=== PATIENT | female | born 1960 | race Caucasian/White ===

== ENCOUNTER → 2017-02-18 | Outpatient (CLI) | payer OTHER ==
[~2017-02-18] MED LIST: ADULT LOW DOSE81 MG PO; AVELOX 400 MG400 MG PO; ECONAZOLE 1% CR30 G1 TRANSDERM; HYDROCHLOROTHIA25 M2 PO; LIPITOR10 MG PO; PAXIL20 MG PO; PERCOCET 5-3251 EACH PO; POTASSIUM20 PO; PRINZIDE 20-121 EACH PO; PROAIR HFA8.5 GM INH; PROVENTIL; [UNRECOGNIZED DRUG - REMARK] PO
== END ==
LOC: PET 13:46
DX: M47.896 Other spondylosis, lumbar region (principal); M47.894 Other spondylosis, thoracic region; R91.1 Solitary pulmonary nodule

== ENCOUNTER → 2017-03-03 | Outpatient (CLI) | payer OTHER ==
[2017-03-03] VITALS (10 sets, daily range): BP systolic 117–161; BP diastolic 66–98
[~2017-03-03] VITALS: Ht 175.3 cm; Wt 58.1 kg
[~2017-03-03] MED LIST changes: +CENTRUM SILVER1 EAC4 PO; +LOVASTATIN 20 M20 MG PO; +NAPROSYN500 MG PO; +NITROGLYCERIN0.4 MG SUBLING
--- NOTE | ~2017-03-03 | S ---
[facility] [place] [address] SURGICAL PATH RPT PROCEDURE Name: PROSPER ESTEBAN ABDIAS Room #: REG LIDIA HoytStefanie.#: [id number] Admission: 03/03/17 Date of : 56 Discharge: Report #: [id number] Path Case #: [id number] PATHOLOGY REPORT COLLECTION DATE: 03/03/2017 RECEIVED DATE: 03/03/2017 SUBMITTING PHYS: Dr. Abhinav Zelaya OTHER PHYS: Dr. Marium Christianson SPECIMEN(S) RECEIVED: A.Rt lung mass * * * * * * * * * * * * FINAL DIAGNOSIS: Lung, right lung, needle core biopsy: - INVASIVE MODERATELY-DIFFERENTIATED ADENOCARCINOMA. COMMENT: The immunohistochemical stains are performed to further characterize the neoplasm. (Block A1) TTF-1 Reactivity present Napsin Reactivity present P40 Focally reactive P63 Weakly reactive suggestive of a mixed squamous component. Co-Review: Dr. Amalia De Los Santos. Findings are telephoned to Ms. Galo, Dr. Abhinav Zelaya's nurse at 12:03 PM on 03/05/2017. (IUV:mml; 03/04/2017) PATHOLOGIST: Etelvina Yip M.D. REPORT ELECTRONICALLY SIGNED BY: Etelvina Yip M.D. DATE/TIME: 03/05/2017 12:04 * * * * * * * * * * * * GROSS PATHOLOGY: Received in formalin labeled "Prosper Esteban, right lung biopsy," are 2 distinct needle cores of flores soft tissue ranging from 0.7 to 0.8 cm in length, which are submitted entirely in cassette A1. (SNA; 03/03/2017) CLINICAL HISTORY: Right lung mass seen on PET scan INITIAL CPT CODE(S): [facility] [address] [place] [address] SURGICAL PATH RPT PROCEDURE Name: ASHISH ESTEBANFany CALERO Room #: REG LIDIA Hoyt.William.#: [id number] Admission: 03/03/17 Date of : 56 Discharge: Report #: [id number] Path Case #: [id number]; [id number], [id number] Professional services performed by [facility] at [address] [place], [place] [address] Technical services performed by [facility] at [address] [place] [address]. Brando Renae [facility] [address] [place] [address] PHONE: [phone] DIRECTOR: Darryn Urbano M.D. * * * END OF REPORT * * *
[2017-03-03 08:18] LABS: CREATININE 0.7 mg/dL (0.6-1.0); POTASSIUM 3.6 mmol/L (3.5-5.1)
[2017-03-03 08:24] LABS: ALBUMIN 3.6 g/dL (3.4-5.0); TOTAL BILIRUBIN 0.6 mg/dL (<0.1-1.0); TOTAL PROTEIN 7.5 g/dL (6.4-8.2)
[2017-03-03 08:25] LABS: APTT 26.6 Seconds (24.5-32.8); PROTIME 10.6 Seconds (9.3-11.4)
[2017-03-03 08:29] LABS: HEMOGLOBIN 17.1 gm/dL (12.0-15.0); RBC 5.35 mil/uL (4.20-5.00); WBC 6.2 thou/uL (4.0-11.0)
[2017-03-03 08:30] LABS: HEMATOCRIT 50.2 % (37.0-47.0); MCH 31.9 pg (26.0-34.0); MCV 93.9 fL (80.0-100.0); RDW 13.5 % (10.5-14.5)
== END | disposition home or self-care (01) ==
LOC: CAT 07:47
PROVIDERS: Internal Medicine Pulmonary Disease
DX: C34.91 Malignant neoplasm of unspecified part of right bronchus or lung (principal); J43.9 Emphysema, unspecified

== ENCOUNTER → 2017-08-13 | Outpatient (CLI) | payer OTHER | LOC: RAD 13:26 | DX: J20.9 Acute bronchitis, unspecified (principal); J43.8 Other emphysema ==

== ENCOUNTER 2018-09-06 15:12 | Inpatient (IN) | payer OTHER ==
[~2018-09-06] VITALS: Ht 175.3 cm; Wt 49.0 kg
[2018-09-06 15:13] VITALS: BP 164/87
[2018-09-06 15:51] LABS: BE(vivo) -0.3 mmol/L (-2 to +3); HCO3 26.1 mmol/L (22.0-26.0); PCO2 49.1 mmHg (35.0-45.0); PO2 71.7 mmHg (80.0-100.0); pH 7.344 (7.360-7.450); sO2 93.5 % (92.0-98.0)
[2018-09-06 16:16] LABS: ABSOLUTE NEUTROPHILS 13.1 thou/uL (1.4-8.2); BASOPHILS 0.2 % (0.0-2.0); EOSINOPHILS 1.1 % (0.0-3.0); HEMATOCRIT 47.5 % (37.0-47.0); HEMOGLOBIN 15.9 gm/dL (12.0-15.0); LYMPHOCYTES 2.9 % (24.0-44.0); MCH 32.4 pg (26.0-34.0); MCHC 33.5 g/dL (28.0-37.0); MCV 96.6 fL (80.0-100.0); MONOCYTES 6.4 % (1.0-8.0); PLATELET COUNT 121 thou/uL (150-400); POLYS 89.4 % (36.0-66.0); RBC 4.92 mil/uL (4.20-5.00); RDW 13.9 % (10.5-14.5); WBC 14.6 thou/uL (4.0-11.0)
[2018-09-06 16:24] LABS: ANION GAP 6 mmol/L (7-16); BUN 12 mg/dL (7-18); CALCIUM 8.9 mg/dL (8.5-10.1); CHLORIDE 102 mmol/L (98-107); CO2 32 mmol/L (21-32); CREATININE 0.7 mg/dL (0.6-1.0); GLUCOSE 160 mg/dL (74-106); POTASSIUM 3.2 mmol/L (3.5-5.1); SODIUM 140 mmol/L (136-145)
--- NOTE | 2018-09-06 16:30 | NUR ---
ASSUMED PT CARE FROM SAGAR GALLEGOS
[2018-09-06 16:32] LABS: ALBUMIN 3.4 g/dL (3.4-5.0); SGOT 30 U/L (15-37); SGPT 33 U/L (30-65); TOTAL BILIRUBIN 0.9 mg/dL (<0.1-1.0); TOTAL PROTEIN 6.8 g/dL (6.4-8.2); TROPONIN-I <0.06 ng/mL (<0.06)
[2018-09-06 16:49] LABS: URINE CLARITY CLEAR; URINE COLOR YELLOW; URINE GLUCOSE-RANDOM* NEGATIVE (Negative); URINE KETONES 1+ (Negative); URINE PROTEIN (DIPSTICK) TRACE (Negative); URINE SPECIFIC GRAVITY 1.025 (1.005-1.035)
[2018-09-06 16:50] LABS: URINE BILIRUBIN NEGATIVE (Negative); URINE BLOOD TRACE (Negative); URINE LEUKOCYTES-REFLEX NEGATIVE (Negative); URINE NITRITE-REFLEX NEGATIVE (Negative); URINE UROBILINOGEN 0.2 E.U./dl (0.2-1.0)
--- NOTE | 2018-09-06 16:53 | EKG ---
[place] [address] [place] [address] ELECTROCARDIOGRAM REPORT Name: PROSPER ESTEBAN Room #: REG SANGITA Pham#: [id number] Admission: 09/06/18 Attend Phys: Discharge: Date of : 56 Report #: [id number] THIS REPORT FOR: //name// [facility] ED Test Date: 2018-09-06 Test Time: 15:36:02 Pat Name: PROSPER ESTEBAN Department: Room: Gender: F Field Services Analyst: damián : 1960 Requested By: Halie Vidal Order Number: [id number] MD: Kaden Moran Measurements Intervals [place] Rate: 86 P: 90 NM: 140 QRS: 96 QRSD: 108 T: 47 QT: 401 QTc: 480 Interpretive Statements Sinus rhythm Right atrial enlargement Borderline right axis deviation Minimal ST depression, inferior leads Compared to ECG 11/03/2012 06:51:32 No significant change was found Electronically Signed On 09-06-2018 16:53:37 MACHINE WOOD SANDER by Kaden Moran [email or web address] <ELECTRONICALLY SIGNED> By: Kaden Moran MD, [facility] 09/06/18 1653 [id number] Kaden Moran MD, FACC /EPI
[2018-09-06] MEDS ORDERED: TESSALON PERLE100 MG PO (18:27)
[2018-09-06] MEDS ORDERED: POTASSIUM20 PO (18:28)
[2018-09-06] MEDS ORDERED: STIOLTO RESPIMAT4 GM IM (18:28)
[2018-09-06] MEDS ORDERED: ZOLOFT50 MG PO (18:28)
[2018-09-06 18:29] VITALS: BP 126/74
[2018-09-06] MEDS ORDERED: TRAZODONE HCL100 MG PO (18:29)
--- NOTE | 2018-09-06 19:41 | NUR ---
ATTEMPT TO CALL REPORT, PAIGE GALLEGOS TO CALL ED BACK WHEN AVAILABLE
[2018-09-06 22:25] LABS: ALBUMIN 3.1 g/dL (3.4-5.0); TOTAL PROTEIN 6.4 g/dL (6.4-8.2)
[2018-09-06 23:47] VITALS: BP 108/72
[2018-09-07 00:38] LABS: TSH 1.135 uIU/mL (0.358-3.740)
--- NOTE | 2018-09-07 03:35 | NUR ---
ARRIVAL VIA ER FROM ONOCOLOGIST OFFICE AFTER HAVING LUNG BIOSPSY, WHICH CAUSED A PNEUMO. PT HAD A FLUTTER VALVE INSERTED AND DRESSED WITH ABD'S AND TAPE. PT STATES PAIN ASSOCIATED WITH THE INCISION SITE AND VALVE AREA. GAVE ORAL TYLENOL FOR PAIN. GAVE PT TRAZADONE WHICH SHE STATES SHE TAKES IN THE EVENING AND NOT IN THE MORNING. PT STATES, "I TAKE IT TO HELP ME SLEEP". IN THE PROCESS OF GETTING IT MOVED FROM 0900 TO 2100. PT STATES NO OTHER COMPLAINTS. PT IS REFUSING RT TX'S. HOURLY ROUNDING.
[2018-09-07 03:37] VITALS: BP 137/83
[2018-09-07 05:36] LABS: HEMATOCRIT 50.4 % (37.0-47.0); HEMOGLOBIN 16.4 gm/dL (12.0-15.0); MCH 31.9 pg (26.0-34.0); MCHC 32.5 g/dL (28.0-37.0); MCV 98.1 fL (80.0-100.0); RBC 5.14 mil/uL (4.20-5.00); WBC 12.9 thou/uL (4.0-11.0)
[2018-09-07 05:41] LABS: CALCIUM 9.1 mg/dL (8.5-10.1); CREATININE 0.6 mg/dL (0.6-1.0); MAGNESIUM 1.8 mg/dL (1.8-2.4); POTASSIUM 3.5 mmol/L (3.5-5.1)
[2018-09-07 08:18] VITALS: BP 129/79
[2018-09-07 12:00] VITALS: BP 125/79
--- NOTE | 2018-09-07 16:10 | NUR ---
ASSESSMENT: CM REVIEWED CHART AND MET WITH PATIENT AT THE BEDSIDE. PT IS ALERT AND ORIENTED X4. PT REPORTS SHE LIVES IN A HOUSE WITH HER SIGNIFICANT OTHER. PT REPORTS THAT SHE HAS ABOUT 7 STEPS WITH HANDRAILS TO ENTER THE HOME. PT REPORTS SHE AMBULATES INDEPENDENTLY AND IS INDEPENDENT WITH ADLS. PT REPORTS HAVING A GRAB BAR AND SHOWER CHAIR. PT HAS HX OF SMALL CELL CARCINOMA AND HAS BEEN FO[facility]ING [facility] AND SEES DR. JACKSON. PT REPORTS SHE HAS NOT HAD HH IN THE PAST NOR BEEN TO A SNF. PT IS CURRENTLY ON OXYGEN BUT DOES NOT HAVE IT SUPPLIED AT HOME. PT WAS ADMITTED FOR PNEUMOTHORAX AND CURRENTLY HAS CHEST TUBE. PT REPORTS SHE HAD BEEN DOING PRETTY WELL AT HOME AND SHE ANTICIPATES SHE HOPEFULLY WILL HAVE NO NEEDS AT DISCHARGE. CM WILL CONTINUE TO FOLLOW TO ASSIST NEEDED.
[2018-09-07 17:13] VITALS: BP 146/86
--- NOTE | 2018-09-07 18:19 | NUR ---
PT WITH RT CHEST TUBE ATTACHED TO -20CM PLEURAVAC..PAIN FAIRLY WELL CONTROLLED WITH NORCOS...
[2018-09-07 19:36] VITALS: BP 118/73
[2018-09-08 03:39] VITALS: BP 153/94
[2018-09-08 05:12] LABS: HEMATOCRIT 45.8 % (37.0-47.0); HEMOGLOBIN 15.7 gm/dL (12.0-15.0); MCH 33.3 pg (26.0-34.0); MCHC 34.4 g/dL (28.0-37.0); MCV 96.9 fL (80.0-100.0); RBC 4.72 mil/uL (4.20-5.00); RDW 13.8 % (10.5-14.5); WBC 10.8 thou/uL (4.0-11.0)
[2018-09-08 05:33] LABS: CALCIUM 9.4 mg/dL (8.5-10.1); CREATININE 0.6 mg/dL (0.6-1.0); MAGNESIUM 1.9 mg/dL (1.8-2.4); POTASSIUM 3.3 mmol/L (3.5-5.1)
[2018-09-08 07:20] VITALS: BP 136/83
--- NOTE | 2018-09-08 07:47 | NUR ---
PATIENT IS PROGRESSING IN HER CARE PLAN. VITAL SIGNS STABLE WITH PATIENT HAVING NO COMPLAINTS OF NAUSEA. PATIENT DID COMPLAIN OF CHEST PAIN WHEN COUGHING ON SIDE WITH CHEST TUBE. PAIN SUCCESSFULLY TREATED WITH MEDICATIONS AND COUGH MEDS. PATIENT WAS UP TO BEDSIDE COMMODE FREQUENTLY WITH ASSISTANCE INCIDENT FREE. CONTINUE PLAN OF CARE.
[2018-09-08 11:35] VITALS: BP 130/80
--- NOTE | 2018-09-08 14:38 | NUR ---
ON-GOING ASSESSMENT: PT IS SLOWLY PROGRESSING TOWARDS DISCHARGE GOALS AND CHEST TUBE STILL REMAINS IN PLACE. CM WILL CONTINUE TO FOLLOW TO ASSIST NEEDED.
[2018-09-08 16:05] VITALS: BP 175/94
--- NOTE | 2018-09-08 17:47 | NUR ---
ASSUMED CARE AT SHIFT CHANGE. PT A/O X 4. CALM/COOPERATIVE ALL DAY. C/O MINIMAL PAIN THROUGHOUT THE DAY, GIVEN PRN PAIN MEDICATION FOR SYMPTOMS. PT UPDATED ON POC. LABS SHOW HYPOKALEMIA, K REPLACED AND ORDER FOR DAILY K RESTARTED FROM HOME MEDS PER DR CARBAJAL. PT REPEAT CXR SHOW STABLE PNEUMO WITH NO CHANGE FROM YESTERDAY. CHEST TUBE REMAINS IN PLACE WITH NO DRAINAGE TODAY. ASSESSMENTS PER CHART. PT REMAINS STABLE. LABS NOTED. WILL CONT TO MONITOR AND FOLLOW POC.
[2018-09-08 19:04] VITALS: BP 141/91
[2018-09-09 03:27] VITALS: BP 143/85
--- NOTE | 2018-09-09 04:07 | NUR ---
PATIENT IS PROGRESSING IN HER CARE PLAN. VITAL SIGNS STABLE WITH PATIENT HAVING NO COMPLAINTS OF NAUSEA. PATIENT DID COMPLAIN OF PAIN IN RIGHT CHEST FROM COUGHING AND WAS MANAGED BETTER THAN YESTERDAY. COUGH MEDICATIONS PRN FOR CHRONIC COUGH. PATIENT IS FULLY ORIENTED AND ABLE TO CALL APPROPRIATELY FOR REQUESTS. SHE REMAINS ON OXYGEN AND IS HAVING NO TROUBLES BREATHING EVIDENCED BY SPOT OXYGENATION CHECKS. CHEST TUBE REMAINS IN PLACE BUT IS NOT WORKING EFFECTIVELY. DOCTOR AWARE WITH POSSIBLE REPLACEMENT TREATMENT TODAY. PATIENT HAS BEEN UP MULTIPLE TIMES TO BEDSIDE COMMODE WITH ASSISTANCE INCIDENT FREE. CONTINUE PLAN OF CARE.
[2018-09-09 06:38] LABS: HEMATOCRIT 46.4 % (37.0-47.0); MCH 31.6 pg (26.0-34.0); MCHC 32.3 g/dL (28.0-37.0); RBC 4.73 mil/uL (4.20-5.00); RDW 13.9 % (10.5-14.5); WBC 7.6 thou/uL (4.0-11.0)
[2018-09-09 06:48] LABS: CALCIUM 9.1 mg/dL (8.5-10.1); CREATININE 0.5 mg/dL (0.6-1.0); MAGNESIUM 1.8 mg/dL (1.8-2.4); POTASSIUM 3.8 mmol/L (3.5-5.1)
[2018-09-09 07:06] VITALS: BP 121/84
[2018-09-09 11:45] VITALS: BP 132/81
--- NOTE | 2018-09-09 14:25 | NUR ---
PT HAS COARSE LUNGS..SATS 95% ON 7L...RT SINGLE LUMEN CT W/ WATERSEAL IN PLACE..MEDS PRN FOR COUGH AND RT TX...WILL MONITOR...
[2018-09-09 16:25] VITALS: BP 134/86
[2018-09-09 19:08] VITALS: BP 138/85
[2018-09-10 00:21] VITALS: BP 139/89
--- NOTE | 2018-09-10 03:13 | NUR ---
PATIENT IS ALERT AND ORIENTED. PATIENT IS SBA TO CAMMODE. PATIENT IS ON 7L NC. PATIENT HAS A CHEST TUBE IN PLACE JUST WATER SEALED. CHEST TUBE IS TAPED TO THE FLOOR. PATIENTS PAIN IS CONTROLLED WITH MEDICATION. PATIENT IS CURRENTELY ON CHEMO AND RADIATION. PATIENT IS NSR ON TELE. PATIENTS LBM WAS THE 28TH PATIENT STATED IT WAS NORMAL TO GO A COUPLE DAYS BETWEEN BMS. PATIENT IS RESTING COMFORTABLEY IN BED. WCM. PATIENT IS PROGRESSING TO GOALS.
[2018-09-10 04:45] VITALS: BP 133/72
[2018-09-10 05:18] LABS: CALCIUM 9.2 mg/dL (8.5-10.1); CREATININE 0.6 mg/dL (0.6-1.0); HEMOGLOBIN 15.3 gm/dL (12.0-15.0); MAGNESIUM 1.9 mg/dL (1.8-2.4); MCH 31.8 pg (26.0-34.0); MCHC 32.6 g/dL (28.0-37.0); MCV 97.7 fL (80.0-100.0); POTASSIUM 3.8 mmol/L (3.5-5.1); RBC 4.81 mil/uL (4.20-5.00); RDW 13.7 % (10.5-14.5); WBC 7.3 thou/uL (4.0-11.0)
[2018-09-10 07:23] VITALS: BP 131/81
[2018-09-10 11:00] VITALS: BP 148/95
--- NOTE | 2018-09-10 13:54 | NUR ---
ON-GOING ASSESSMENT: CM REVIEWED CHART AND MET WITH PATIENT AT THE BEDSIDE. PT STILL HAS CHEST TUBE IN BUT IS WATER SEALED. EVER IS STILL CURRENTLY ON 4L OXYGEN AND DOES NOT HAVE OXYGEN ARRANGED AT HOME. CM SPOKE WITH ATTENDING AND ONCE CHEST TUBE IS ABLE TO BE PULLED PT WILL NEED TO HAVE A SAT EXERCISE TEST ORDERED TO SEE IF SHE WILL NEED HOME OXYGEN. PT IS HOPEFUL SHE WILL NOT NEED OXYGEN AT THE TIME OF DISCHARGE. IF CHEST TUBE IS PULLED AND PATIENT IS MEDICALLY STABLE TO LEAVE OVER THE WEEKEND AND IF SHE IS REQUIRING HOME OXYGEN THEN CONTACT [facility] ([employer] OFFICE AT [phone] AND LET THEM KNOW SHE IS GOING HOME AND NEEDS AT TANK. ONCE THE SAT EXERCISE TEST IS COMPLETED A SCRIPT FROM THE ATTENDING STATING THE LITER FLOW FROM THE TESTING MUST BE ON THE SCRIPT WELL A DIAGNOSIS AND WRITE FOR A [employer] AND [employer]ANKS ON THE SCRIPT AND FAX TO [facility] AT THE NUMBER THEY PROVIDE ([phone]). PATIENT REPORTING SHE DOES NOT WANT HH AND STATES HER SIGNIFICANT OTHER IS THERE TO HELP TAKE CARE OF HER.
[2018-09-10 15:53] VITALS: BP 146/90
[2018-09-10 20:25] VITALS: BP 142/88
--- NOTE | 2018-09-11 03:50 | NUR ---
PATIENT IS ALERT AND OREITNED. PATIENT IS SBA TO BSC DUE TO TUBES. PATIENTS CHEST TUBE DRESSING IS CLEAN AND INTACT. CHEST TUBE IS WATER SEALED PENDING CXR AND POSSIBLE REMOVAL OF TUBE TODAY. PATIENT DENIES NAUSEA. STILL HAS POOR APPITITE. PATIENTS PAIN IS CONTROLLED WITH PAIN MEDICATION. PATIENT IS ON 4L NC. ROOM AIR IS BASE LINE. PATIENT IS RESTING COMFORTABLEY IN BED. WCM. PATIENT IS PROGRESSING TO GOALS.
[2018-09-11 05:30] VITALS: BP 124/78
[2018-09-11 05:37] LABS: CALCIUM 9.1 mg/dL (8.5-10.1); CREATININE 0.7 mg/dL (0.6-1.0)
[2018-09-11 08:07] VITALS: BP 140/90
[2018-09-11 11:42] VITALS: BP 139/87
[2018-09-11 15:03] VITALS: BP 139/92
--- NOTE | 2018-09-11 18:50 | NUR ---
Assumed care of Pt at 0700. Pt AOx4 in no acute distress. Chest tube discontinued by physician - dressing c/d/i. ambulating indipdedently - still soa w/ activity. refused transfer to senior suites. on 4L NC. possible d/c tomorrow. good progress toward poc goals.
[2018-09-11 20:45] VITALS: BP 120/81
[2018-09-12 04:15] VITALS: BP 137/93
[2018-09-12 07:44] VITALS: BP 126/83
--- NOTE | 2018-09-12 07:58 | NUR ---
PATIENT IS ALERT AND ORIETNED. PATIENT IS SBA. PATIENTS PAIN IS CONTROLLED WITH PAIN MED. PATIENT IS PENDING DISCHARGE TODAY. PATIENT IS ON 4L NC. PATIENTS LUNGS ARE COURSE. PATIENT IS NSR ON TELE. PATIENT IS RESTING COFMORTABLEY IN BED. WCM. PATIENT IS PROGRESSING TO GOALS
[2018-09-12 11:30] VITALS: BP 113/78
[2018-09-12 15:54] VITALS: BP 117/72
[2018-09-12] MEDS ORDERED: LEVAQUIN 500 M500 M1 PO (17:15)
[2018-09-12] MEDS ORDERED: DELSYM COU30 MG/5 M1 PO (17:15)
[2018-09-12] MEDS ORDERED: ACETAMINOPHEN325 M1 PO (17:15)
[2018-09-12] MEDS ORDERED: MIRALAX17 GM PO (17:15)
[2018-09-12] MEDS ORDERED: NICOTINE TRANSD21 M1 TRANSDERM (17:15)
[2018-09-12] MEDS ORDERED: MUCINEX600 MG PO (17:15)
[2018-09-12] MEDS ORDERED: PREDNISONE 20 M20 M1 PO (17:15)
[2018-09-12] MEDS ORDERED: HYDROCODON-ACE1 EAC7 PO (17:15)
[2018-09-12] MEDS ORDERED: PULMICORT0.5 MG/21 INH (17:15)
--- NOTE | 2018-09-12 17:20 | NUR ---
ASSUMED PATIENT CARE AT 0700 A/O X4. TOLERATED ON 3L/NC O2. RT STURATION RESRT AND EXERISE SHOW PATIENT NEED 3L O2 TO GO HOME. NOTIFIED DR DUMAS ABOUT DISCHARGE. WAITTING FOR DC ORDER. PATIENT PROGRESSING TOWARDS POC GOALS.
[2018-09-12 19:40] VITALS: BP 126/79
[2018-09-13] VITALS (8 sets, daily range): BP systolic 119–131; BP diastolic 75–87
--- NOTE | 2018-09-13 04:41 | NUR ---
PAITNET IS ALERT AND ORIENTED. PAIN IS MANAGED WITH MEDIATIONS. PATIENT IS PENDING DISCHARGE TODAY. CM NOTES HAS NUMBER TO CALL FOR HOME OXYGEN UPON DC. PATIENT IS SBA TO BSC. PATIENT IS ON 3L NC. PATIENT IS RESTING COMFORTABLEY IN BED. WCM. PATIENT IS PROGRESSING TO GOALS.
--- NOTE | 2018-09-13 13:59 | NUR ---
ON-GOING ASSESSMENT: CM REVIEWED CHART. PT HAS ORDERS TO GO HOME ONCE OXYGEN ARRANGED, CM HAD NOT WITH OXYGEN COMPANY # IN FOR THE WEEKEND. CM MET WITH PATIENT AT THE BEDSIDE. CM FAXED SAT EXERCISE AND RX FOR OXYGEN TO [facility] AND THEY DELIVERED THE PORTABLE TANK. CM DISCUSSED HH ORDERS AND PT STATING SHE DOES NOT WANT HH OR FEEL SHE NEEDS IT. PT STATING HER SIGNIFICANT OTHER IS WITH HER 02/03. CM NOTIFIED ATTENDING. PT REPORTS NO FURTHER NEESD FROM CM. PT STATES SHE HAS BEEN WALKING INDEPENDENTLY AND FEELS FINE WALKING. CASE CLOSED.
--- NOTE | 2018-09-13 14:53 | NUR ---
PT DISCHARGED HOME WITH SO..REFUSED HOME HEALTH..RX GIVEN AND FOLLOW UP APPOINTMENTS INSTRUCTED..O2 DELIVERED..
--- NOTE | 2018-09-20 12:59 | HC ---
[facility] [place] [address] CONSULTATION Name: PROSPER ESTEBAN Room #: 357-[facility] IN M.R.#: [id number] Admission: 09/06/18 Attend Phys: Rufino Malave MD Discharge: 09/13/18 Date of : 56 Report #: [id number] THIS REPORT FOR: //name// CC: Marium Zelaya MD HISTORY OF PRESENT ILLNESS: The patient is well known to me from treatment of non-small cell lung cancer. Yesterday, she underwent a CT-guided needle biopsy of an enlarging right lower lobe lung nodule by Dr. Dilan Ramesh, Interventional Radiology at [facility]. She initially had no difficulties with the procedure and had films performed post, which revealed no evidence of pneumothorax. Unfortunately, she subsequently developed worsening shortness of breath and was brought to the Emergency Room at [facility] with complaints of chest heaviness. Chest x-ray showed a small pneumothorax and subsequently a chest tube has been placed with improvement in her oxygenation and symptomatology. She denied any hemoptysis. She had no vision changes. Past medical history is significant for adenocarcinoma of the lung diagnosed in 12/2016 as part of a screening CT scan. This right apical mass measured 2.9 x 1.7 x 2 cm and she was felt to be a poor surgical candidate. She was subsequently treated with definitive radiation therapy for this ALK and EGFR negative neoplasm. Her cancer was strongly positive for PD-L1 and has been receiving Keytruda every 3 weeks for a total so far of 16 cycles. On recent followup imaging, the right lower lobe lung nodule appears to have increased in size and was PET avid leading to the aforementioned biopsy. She unfortunately has continued to smoke in spite of this diagnosis. PAST MEDICAL HISTORY: Positive for chronic obstructive lung disease and has seen Dr. Zelaya previously. She has undergone a previous oophorectomy. She has medically managed hypertension and hyperlipidemia. She has a remote history of DVT 20 years ago in her right lower extremity. MEDICATIONS: As listed on the MFR. ALLERGIES: BACTRIM. SOCIAL HISTORY: She is a nondrinker. She does continue to smoke cigarettes in spite of earlier admonishments. [address] [address] CONSULTATION Name: PROSPER ESTEBAN Room #: 357-P [facility] IN M.R.#: [id number] Admission: 09/06/18 Attend Phys: Rufino Malave MD Discharge: 09/13/18 Date of : 56 Report #: [id number] FAMILY HISTORY: Noncontributory. REVIEW OF SYSTEMS: As in history of present illness. PHYSICAL EXAMINATION: GENERAL: Shows a thin white female. HEENT: Shows poor dentition. NECK: Supple. CHEST: Reveals diminished breath sounds and a right chest tube is present. CARDIOVASCULAR: Normal S1, S2. ABDOMEN: Soft. EXTREMITIES: No clubbing, cyanosis, edema. LYMPHATICS: Revealed no palpable supraclavicular adenopathy. NEUROLOGIC: No focal localizing signs. PSYCHIATRIC: Not agitated or confused. SKIN: Shows normal turgor. ASSESSMENT: Adenocarcinoma of the lung. PLAN: We are awaiting results of her biopsy regarding the enlarging right lower lobe nodule to see if this is a metastasis versus a new asynchronous primary tumor in an ongoing smoker. I will have her images clouded over to [place] of recent inpatient imaging. Hopefully, as soon as lung stays inflated, chest tube to be removed and she can be discharged. <ELECTRONICALLY SIGNED> By: Susan Lee MD 09/20/18 1259 1311 36 Susan Lee MD /nt
== END 2018-09-13 15:07 | disposition home or self-care (01) | DRG 199 ==
LOC: ER 15:12 → 3W 17:24 → EROBS 17:24 → 3W 20:08
PROVIDERS: Internal Medicine Pulmonary Disease; Physician Assistant; ADMIT Internal Medicine
PROC: 0W9930Z Drainage of Right Pleural Cavity with Drainage Device, Percutaneous Approach (ICD-10-PCS; principal; 2018-09-06)
DX: J93.83 Other pneumothorax (principal); J96.22 Acute and chronic respiratory failure with hypercapnia; J96.21 Acute and chronic respiratory failure with hypoxia; J44.1 Chronic obstructive pulmonary disease with (acute) exacerbation; C34.90 Malignant neoplasm of unspecified part of unspecified bronchus or lung; E44.0 Moderate protein-calorie malnutrition; Z68.1 Body mass index [BMI] 19.9 or less, adult; F17.210 Nicotine dependence, cigarettes, uncomplicated; F32.9 Major depressive disorder, single episode, unspecified; I10 Essential (primary) hypertension; E78.5 Hyperlipidemia, unspecified; Z90.721 Acquired absence of ovaries, unilateral; Z90.710 Acquired absence of both cervix and uterus; Z98.41 Cataract extraction status, right eye; Z88.8 Allergy status to other drugs, medicaments and biological substances; Z91.018 Allergy to other foods; Z85.118 Personal history of other malignant neoplasm of bronchus and lung; Z79.82 Long term (current) use of aspirin; Z79.899 Other long term (current) drug therapy
CPT/HCPCS: 10879

== ENCOUNTER 2018-10-12 19:20 | Inpatient (IN) | payer OTHER ==
[~2018-10-12] VITALS: Ht 152.4 cm; Wt 52.8 kg
[~2018-10-12 19:20] MED LIST changes: +ACETAMINOPHEN325 M1 PO; +DELSYM COU30 MG/5 M1 PO; +HYDROCODON-ACE1 EAC7 PO; +LEVAQUIN 500 M500 M1 PO; +MIRALAX17 GM PO; +MUCINEX600 MG PO; +NICOTINE TRANSD21 M1 TRANSDERM; +PREDNISONE 20 M20 M1 PO; +PULMICORT0.5 MG/21 INH; +STIOLTO RESPIMAT4 GM IM; +TESSALON PERLE100 MG PO; +TRAZODONE HCL100 MG PO; +ZOLOFT50 MG PO
[2018-10-12 19:21] VITALS: BP 137/96
[2018-10-12 20:26] LABS: ABSOLUTE NEUTROPHILS 3.6 thou/uL (1.4-8.2); BASOPHILS 0.7 % (0.0-2.0); EOSINOPHILS 6.3 % (0.0-3.0); HEMOGLOBIN 13.2 gm/dL (12.0-15.0); LYMPHOCYTES 15.5 % (24.0-44.0); MCH 31.6 pg (26.0-34.0); MCHC 33.9 g/dL (28.0-37.0); MCV 93.5 fL (80.0-100.0); MONOCYTES 11.5 % (1.0-8.0); PLATELET COUNT 219 thou/uL (150-400); RBC 4.18 mil/uL (4.20-5.00); RDW 13.2 % (10.5-14.5); WBC 5.4 thou/uL (4.0-11.0)
[2018-10-12 20:38] LABS: CALCIUM 9.7 mg/dL (8.5-10.1); CREATININE 0.7 mg/dL (0.6-1.0); POTASSIUM 3.8 mmol/L (3.5-5.1)
[2018-10-12 20:43] LABS: ALBUMIN 2.9 g/dL (3.4-5.0); APTT 28.7 Seconds (24.5-32.8); PROTIME 10.5 Seconds (9.3-11.4); TOTAL BILIRUBIN 0.3 mg/dL (<0.1-1.0); TOTAL PROTEIN 6.7 g/dL (6.4-8.2)
[2018-10-12 22:55] VITALS: BP 154/95
[2018-10-13 03:46] VITALS: BP 92/57
--- NOTE | 2018-10-13 06:06 | NUR ---
PT MAKING SLOW PROGRESS TOWARDS GOALS. ON O2 AT 4L PER NC OVERNIGHT. HX NOTED. PT STATES SHE WEARS O2 AT HOME WITH ANY ACTIVITY AT HOME BUT TYPICALLY NOT WHILE AT REST. LUNGS DIMINISHED THROUGHOUT, NOTED FAINT CRACKLES IN BOTH BASES THIS MORNING. X1 DOSE OF PAIN MEDICATION 6/10 PAIN RLE. PAIN RATING WITH REASSESSMENT WAS 3/10. COMPARED TO LLE, RLE 1+ EDEMA, SLIGHTLY MORE PINK AND WARM.
[2018-10-13 07:27] VITALS: BP 121/77
[2018-10-13 10:45] VITALS: BP 105/68
--- NOTE | 2018-10-13 12:11 | 2DMMODE ---
[facility] [address] [address] 2 D/M-MODE ECHOCARDIOGRAM Name: PROSPER ESTEBAN Room #: 355-P [facility] IN M.R.#: [id number] ������������� Admission: 10/12/18 ������������� Attend Phys: Rufino Malave, Discharge: ��� ������������� ��� Date of : 56 Date of Service: 10/13/18 1211 �� Report #: [id number] �������� ��������������������������������������������[id number] THIS REPORT FOR: //name// APPROVED REPORT Study performed: 10/13/2018 11:17:34 EXAM: Comprehensive 2D, Doppler, and color-flow Echocardiogram Patient Location: Echo lab Room #: [facility] Status: routine BSA: 1.64 HR: 77 bpm BP: 121/77 mmHg Rhythm: NSR Other Information Study Quality: Good Indications COPD Pulmonary Embolism Hypertension/HDD 2D Dimensions RVDd: 28.47 mm IVSd: 10.05 (7-11mm) LVOT Diam: 19.98 (18-24mm) LVDd: 43.31 mm PWd: 10.92 (7-11mm) Ascending Ao: 28.15 (22-36mm) LVDs: 27.82 (25-40mm) Aortic Root: 26.27 mm IVC: 15.00 mm Volumes Left Atrial Volume (Systole) Single Plane 4CH: 38.78 mL Single Plane 2CH: 31.46 mL LA ESV Index: 25.00 mL/m2 Aortic Valve AoV Peak Taurus.: 1.62 m/s AO Peak Gr.: 10.52 mmHg LVOT Max P.61 mmHg LVOT Max V: 1.38 m/s KERRI Vmax: 2.66 cm2 Mitral Valve E/A Ratio: 2.0 [facility] [address] [place] [address] 2 D/M-MODE ECHOCARDIOGRAM Name: PROSPER ESTEBAN Room #: 355-P [facility] IN [facility]#: [id number] ������������� Admission: 10/12/18 ������������� Attend Phys: Rufino Malave, Discharge: ��� ������������� ��� Date of : 56 Date of Service: 10/13/18 1211 �� Report #: [id number] �������� ��������������������������������������������[id number] MV Decel. Time: 148.40 ms MV E Max Taurus.: 1.25 m/s MV A Taurus.: 0.62 m/s MV PHT: 43.03 ms IVRT: 83.04 ms Pulmonary Valve PV Peak Taurus.: 1.06 m/s PV Peak Gr.: 4.52 mmHg Pulmonary Vein P Vein S: 0.58 m/s P Vein A: 0.26 m/s P Vein D: 0.66 m/s P Vein A Dur.: 133.8 msec P Vein S/D Ratio: 0.88 Left Ventricle The left ventricle is normal size. There is normal LV segmental wall motion. There is normal left ventricular wall thickness. Left ventricular systolic function is normal. The left ventricular ejection fraction is within the normal range. LVEF is 60-65%. The left ventricular diastolic function is normal. Right Ventricle The right ventricle is normal size. The right ventricular systolic function is normal. Atria The left atrium size is normal. The right atrium size is normal. Aortic Valve The aortic valve is normal in structure. No aortic regurgitation is present. There is no aortic valvular stenosis. Mitral Valve The mitral valve is normal in structure. There is no mitral valve regurgitation noted. No evidence of mitral valve stenosis. Tricuspid Valve The tricuspid valve is normal in structure. There is no tricuspid valve regurgitation noted. Pulmonic Valve The pulmonary valve is normal in structure. There is no pulmonic valvular regurgitation. [employer] [facility] [address] [place] [address] 2 D/M-MODE ECHOCARDIOGRAM Name: PROSPER ESTEBAN Room #: 355-P [facility] IN M.R.#: [id number] ������������� Admission: 10/12/18 ������������� Attend Phys: Rufino Malave, Discharge: ��� ������������� ��� Date of : 56 Date of Service: 10/13/18 1211 �� Report #: [id number] �������� ��������������������������������������������[id number] The aortic root is normal in size. IVC is normal in size and collapses >50% with inspiration. Pericardium There is no pericardial effusion. <Conclusion> The left ventricle is normal size. LVEF is 60-65%. The aortic valve is normal in structure. The mitral valve is normal in structure. The tricuspid valve is normal in structure. The pulmonary valve is normal in structure. There is no pericardial effusion. ��������������������������������������������� <ELECTRONICALLY SIGNED> ���������������������������������������� By: Joe Ahumada MD ��������������������������������������������� 10/13/18 1211 121 121 Joe Ahumada MD /INF
--- NOTE | 2018-10-13 14:17 | NUR ---
ASSESSMENT: CM REVIEWED CHART AND MET WITH PATIENT AND HER HUSBBAND AT THE BEDSIDE. PT WAS ADMITTED WITH PULMONARY EMBOLISM/DVT. PT LIVES IN A HOUSE WITH HER . PT REPORTS ABOUT 7 STEPS TO ENTER WITH HANDRAILS AND 7 STEPS TO THE UPPER LEVEL WITH HANDRAILS WELL THE BASEMENT. PT HAS BEEN AMBULATING INDEPENDENTLY. PT HAS OXYGEN ARRANGED AT HOME THROUGH [facility]. PT ALSO HAS HX OF SMALL CELL CARCINOMA AND HAS BEEN FOLLOWING UP AT . CM DISCUSSED ROLE. PT PLANS ON RETURNING HOME ONCE MEDICALLY STABLE.
[2018-10-13 16:10] VITALS: BP 125/75
[2018-10-13] MEDS ORDERED: XARELTO20 MG PO (17:40)
[2018-10-13] MEDS ORDERED: XARELTO15 MG PO (17:40)
[2018-10-13 17:47] VITALS: BP 105/68
--- NOTE | 2018-10-13 19:51 | NUR ---
ASSUMED PATIENT CARE AT 0700. A/O X4. RUGHT LEG 2+ EDEMA. ELEVATED ON PILLOW. PATIENT TOLERATED ON 2L O2 NO SOB, NO CHEST PAIN. DC TO HOME AT 1830.
== END 2018-10-13 18:59 | disposition home or self-care (01) | DRG 299 ==
LOC: EROBS 21:56 → 3W 21:56 → ENTRNSPT 10-13 18:45 → 3W 10-13 18:59
PROVIDERS: Emergency Medicine; ADMIT Internal Medicine
DX: I82.411 Acute embolism and thrombosis of right femoral vein (principal); I26.99 Other pulmonary embolism without acute cor pulmonale; D68.59 Other primary thrombophilia; C34.90 Malignant neoplasm of unspecified part of unspecified bronchus or lung; I82.431 Acute embolism and thrombosis of right popliteal vein; I10 Essential (primary) hypertension; E78.5 Hyperlipidemia, unspecified; J44.9 Chronic obstructive pulmonary disease, unspecified; Z90.710 Acquired absence of both cervix and uterus; Z98.41 Cataract extraction status, right eye; Z90.721 Acquired absence of ovaries, unilateral; Z88.2 Allergy status to sulfonamides; Z88.8 Allergy status to other drugs, medicaments and biological substances; Z87.891 Personal history of nicotine dependence; Z79.82 Long term (current) use of aspirin; Z79.899 Other long term (current) drug therapy
CPT/HCPCS: 10879

== ENCOUNTER → 2018-11-10 | Outpatient (CLI) | payer OTHER ==
[~2018-11-10] MED LIST changes: +XARELTO15 MG PO; +XARELTO20 MG PO
== END ==
LOC: RAD 09:52
DX: J43.9 Emphysema, unspecified (principal); Z88.2 Allergy status to sulfonamides

== ENCOUNTER → 2019-01-18 | Outpatient (CLI) | payer OTHER | LOC: RAD 14:57 | DX: J44.9 Chronic obstructive pulmonary disease, unspecified (principal) ==

== ENCOUNTER → 2019-03-28 | Outpatient (CLI) | payer OTHER ==
[~2019-03-28] VITALS: Ht 175.3 cm; Wt 60.8 kg
[~2019-03-28] MED LIST changes: +CALCIUM + VITA1 EACH PO; +HYDROCODON-ACE1 EA11 PO; +IPRAT-ALBUT 0.5-3 ML INH; +OMEPRAZOLE40 MG PO; +PREDNISONE 10 M10 MG PO; +SERTRALINE HCL50 MG PO; +SYMBICORT160 MCG/4. INH; +XARELTO10 MG PO
--- NOTE | 2019-03-29 14:32 | P ---
[facility] [place] [address] PROCEDURE REPORT Name: PROSPER ESTEBAN [id number] Admission: 03/28/19 ������������������ Attend Phys: Kameron Cano Discharge: ������������������ Date of : 56 Report #: [id number] THIS REPORT FOR: //name// CC: CECELIA Lee DATE OF SERVICE: 03/28/2019 PROCEDURE PERFORMED: Colonoscopy with bleeding control and polypectomy. HISTORY OF PRESENT ILLNESS: The patient is a 58-year-old female with history of anemia. Hemoglobin reportedly in the 6 range. Also, Hemoccult positive stool. She denies any obvious bright red blood per rectum or melena. No previous history of colonoscopy. No family history of colon cancer. The patient has been on aspirin and Xarelto for previous history of pulmonary embolus that has been held for the last week. Because of this, we decided to proceed with an upper endoscopy initially. Three small AVMs were noted, nonbleeding, all of which were cauterized today. DESCRIPTION OF PROCEDURE: The risks and benefits of the procedure were explained to the patient, those risks including but not limited to bleeding, perforation and the risk of sedation. She understood these risks and gave informed consent. Sedation was given using propofol per anesthesia. Next, a digital rectal exam was initially performed, which was normal. Next, using a standard Olympus colonoscope, the scope was placed in the patient's anus and advanced under direct vision to the cecum. The overall prep was good. In the cecum, there were two AVMs. These were approximately 5-7 mm in size, nonbleeding. Again, because of her history of anemia and heme-positive stools, I proceeded with cautery of both AVMs with a 7-Hungarian bipolar cautery. No evidence of bleeding after cauterization. The ileocecal valve was normal. In the ascending colon, there were 2 polyps; one was 3 mm in size, removed with cold forceps; the other was 1.2 cm and removed by snare cautery. The transverse, descending and sigmoid colon were normal. In the rectum, there was a 3-mm sessile polyp. This was removed by cold forceps. On retroflexion, no abnormalities were noted. The scope was then withdrawn and the procedure terminated. The patient tolerated the procedure well. IMPRESSION: 1. Two cecal arteriovenous malformations, nonbleeding, status post cauterization, could cause heme-positive stools and anemia. 2. Three colonic polyps. 3. Otherwise, normal colonoscopy. RECOMMENDATIONS: [address] [address] PROCEDURE REPORT Name: PROSPER ESTEBAN Room #: REG Fátima Pham#: [id number] Admission: 03/28/19 ������������������ Attend Phys: Kameron Cano Discharge: ������������������ Date of : 56 Report #: [id number] 1. Await biopsy results. 2. Repeat colonoscopy in 5 years. 3. We would hold Xarelto and aspirin for 2 more days and then monitor hemoglobin closely. If she remains anemic, could consider M2 capsule for further evaluation of the small bowel as the patient had both AVMs on upper endoscopy and colonoscopy today. Thank you for allowing me to participate in her care. ��������������������������������������������� <ELECTRONICALLY SIGNED> ���������������������������������������� By: Kameron Nguyen MD ��������������������������������������������� 03/29/19 1432 1154 [id number] Kameron Nguyen MD /nt
--- NOTE | 2019-03-29 14:32 | P ---
[facility] [place] [address] [place] [address] PROCEDURE REPORT Name: PROSPER ESTEBAN Room #: [facility]ITALStefanie.[facility] [id number] Admission: 03/28/19 ������������������ Attend Phys: Kameron Cano Discharge: ������������������ Date of : 56 Report #: [id number] THIS REPORT FOR: //name// CC: Kameron Lee MD DATE OF SERVICE: 03/28/2019 PROCEDURE PERFORMED: Upper endoscopy with biopsies and bleeding control. HISTORY OF PRESENT ILLNESS: The patient is a 58-year-old female with anemia, reportedly with hemoglobin in the 6 range, recently received IV iron infusion, was also Hemoccult positive. No previous history of endoscopy. She had been on aspirin and anticoagulation therapy for a previous history of pulmonary embolus. This has been held for the last week. Also started taking omeprazole 2 weeks ago. Plan was for colonoscopy today, but we discussed actually proceeding with an upper endoscopy as well due to her severe anemia and heme positive stool. DESCRIPTION OF PROCEDURE: The risks and benefits of the procedure were explained to the patient, those risks including but not limited to bleeding, perforation, the risk of sedation. She understood these risks and gave informed consent. Sedation was given using propofol per anesthesia. Next, using a standard Olympus upper endoscope, the scope was placed in the patient's mouth and advanced under direct vision through the esophagus, stomach and into the second portion of the duodenum. The larynx was normal in appearance. The esophagus was normal throughout. The GE junction was normal. Upon entering the stomach, a small hiatal hernia was noted. 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 Because of her history of anemia and heme positive stools, I proceeded with cauterizing these with 7-Lao bipolar cautery. The pylorus was normal and patent. In the duodenal bulb, another 3 mm AVM was noted. This was also cauterized. No evidence of active bleeding. The second portion of the duodenum was normal. Biopsies were obtained to rule out the possibility of celiac sprue. The scope was then withdrawn and the procedure terminated. The patient tolerated the procedure well. IMPRESSION: 1. Three small AVMs, no active bleeding, but potential source for bleeding and anemia. All were cauterized today. 2. Small hiatal hernia. RECOMMENDATIONS: 1. Await biopsy results. 2. Continue PPI therapy. 3. We will proceed with colonoscopy next today. [address] [address] PROCEDURE REPORT Name: PROSPER ESTEBAN Room #: REG CLFátima Vero#: [id number] Admission: 03/28/19 ������������������ Attend Phys: Kameron Cano Discharge: ������������������ Date of : 56 Report #: [id number] Thank you for allowing me to participate in her care. ��������������������������������������������� <ELECTRONICALLY SIGNED> ���������������������������������������� By: Kameron Nguyen MD ��������������������������������������������� 03/29/19 1432 [id number] Kameron Nguyen, /anne-marie
--- NOTE | 2019-03-29 16:06 | PATH ---
[facility] [place] [address] PATHOLOGY RPT PROCEDURE Name: PROSPER ESTEBAN Room #: REG LIDIA MStefanie.#: [id number] ������������������ Admission: 03/28/19 ������������������ Date of : 56 Discharge: Report #: [id number] Path Case #: [id number] [facility] Accession Number: [id number] . 01 Material submitted: . PART A: duodenum - DUODENAL BIOPSY R/O CELIAC SPRUE HX ANEMIA PART B: colon - ASCENDING COLON POLYP X2. Modifiers: ascending PART C: rectum - BIOPSY POLYP AT RECTUM . 01 Clinical history: . Pre-OP DX: Anemia, Heme positive stool Post-OP DX: Duodenal x1, gastric AVM x2, hiatal hernia, colon polyps, rectal polyp, cecal AVM x2 . 02 Diagnosis: A. Small bowel, duodenum, biopsy: - Small bowel mucosa with no pathologic diagnosis. . B. Colon, ascending, biopsy: - Adenomatous polyps, multiple fragments. . C. Colon, rectum, biopsy: - Hyperplastic polyps, three. (SKM:pit; 03/29/2019) QTP/03/29/2019 . 02 Electronically signed: . Mike Mejia MD, Pathologist NPI- [id number] . 01 Gross description: . A. Received in formalin labeled "Prosper Esteban, duodenal BX, rule out celiac sprue," are 7 segments of flores soft tissue measuring 1.5 x 1.1 x 0.2 cm in aggregate dimensions and ranging from 0.2 to 0.3 cm in maximum dimension. The specimen is submitted entirely in cassette A1. . B. Received in formalin labeled "Prosper Esteban, ascending colon polyp x2," are multiple segments of flores soft tissue measuring 1.5 x 0.5 x 0.2 cm in aggregate dimensions. The specimen is filtered and entirely submitted in cassette B1. . C. Received in formalin labeled "Prosper Esteban, BX polyp at rectum," are 3 segments of flores soft tissue measuring 0.6 x 0.5 x 0.1 cm in aggregate dimensions and ranging from 0.3 to 0.4 cm in maximum dimension. The specimen is submitted entirely in cassette C1. (TSD; 03/28/2019) TOB/TOB [address] [address] PATHOLOGY RPT PROCEDURE Name: PROSPER ESTEBAN [facility]#: [id number] ������������������ Admission: 03/28/19 ������������������ Date of : 56 Discharge: Report #: [id number] Path Case #: [id number] . 02 Pathologist provided ICD-10: D12.2, K62.1, D64.9 . 02 CPT . 598822, 378401, 950771 Specimen Comment: A courtesy copy of this report has been sent to Specimen Comment: [phone], . Specimen Comment: Report sent to / DR JACKSON Specimen Comment: A duplicate report has been generated due to demographic updates. Performed at: [address] [facility] [id number] MD Justyn Stephens MD Phone: [phone] Performed at: [address] [facility] [id number] MD Etelvina Yip MD Phone: [phone]
== END | disposition home or self-care (01) ==
LOC: GI 09:03
DX: D12.2 Benign neoplasm of ascending colon (principal); K62.1 Rectal polyp; K55.20 Angiodysplasia of colon without hemorrhage; K31.819 Angiodysplasia of stomach and duodenum without bleeding; K44.9 Diaphragmatic hernia without obstruction or gangrene; K21.9 Gastro-esophageal reflux disease without esophagitis; I10 Essential (primary) hypertension; J43.9 Emphysema, unspecified; E78.5 Hyperlipidemia, unspecified; F32.9 Major depressive disorder, single episode, unspecified; Z90.710 Acquired absence of both cervix and uterus; Z98.41 Cataract extraction status, right eye; Z79.01 Long term (current) use of anticoagulants; Z87.891 Personal history of nicotine dependence; Z85.118 Personal history of other malignant neoplasm of bronchus and lung; Z86.711 Personal history of pulmonary embolism; Z79.899 Other long term (current) drug therapy; Z88.2 Allergy status to sulfonamides; Z88.8 Allergy status to other drugs, medicaments and biological substances; Z79.82 Long term (current) use of aspirin
CPT/HCPCS: 62110; 62900

== ENCOUNTER → 2019-05-03 | Outpatient (CLI) | payer OTHER | LOC: RAD 12:07 | DX: J44.9 Chronic obstructive pulmonary disease, unspecified (principal); J98.4 Other disorders of lung; Z88.8 Allergy status to other drugs, medicaments and biological substances ==

== ENCOUNTER → 2019-06-21 | Outpatient (CLI) | payer OTHER | LOC: RAD 11:40 | DX: J18.9 Pneumonia, unspecified organism (principal); J96.12 Chronic respiratory failure with hypercapnia; J43.2 Centrilobular emphysema; C34.01 Malignant neoplasm of right main bronchus; I82.4Z1 Acute embolism and thrombosis of unspecified deep veins of right distal lower extremity; I26.99 Other pulmonary embolism without acute cor pulmonale; E44.0 Moderate protein-calorie malnutrition ==